=== PATIENT | female | born 1980 | race Caucasian/White ===

== ENCOUNTER 2016-12-21 08:23 | Emergency (ER) | payer OTHER ==
[~2016-12-21] VITALS: Ht 162.6 cm; Wt 71.5 kg
[~2016-12-21 08:23] MED LIST: ALPR2TAB PO; IBUP800T25 PO; NITR-58 PO
[2016-12-21 08:27] VITALS: Ht 162.6 cm; Wt 71.5 kg
[2016-12-21] MEDS ORDERED: ONDANSETRON (ODT) 4 MG TAB ODT STA (08:38)
[2016-12-21] MEDS ORDERED: LORAZEPAM 2 MG INJ IM ONE (09:00)
[2016-12-21 09:20] VITALS: BP 134/90; PULSE 101; RESP 20
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
== END 2016-12-21 09:20 | disposition home or self-care (01) ==
LOC: E/R 08:23
DX: F13.239 Sedative, hypnotic or anxiolytic dependence with withdrawal, unspecified (principal)
CPT/HCPCS: 96372; J2060

== ENCOUNTER 2018-01-12 20:04 | Emergency (ER) | END 2018-01-12 23:30 | disposition home or self-care (01) ==

== ENCOUNTER 2018-04-12 18:43 | Emergency (ER) | END 2018-04-12 20:05 | disposition left against medical advice (07) ==